=== PATIENT | male | born 1990 | race Hispanic/Latino ===

== ENCOUNTER 2020-01-03 22:30 | Emergency (ER) | payer SELFPAY ==
[2020-01-03 22:53] LABS: BILIRUBIN,URINE Negative (NEGATIVE); COLOR,URINE Yellow (YELLOW); GLUCOSE, URINE (UA) Negative (NEGATIVE); KETONES,URINE 15 mg/dL (NEGATIVE); LEUKOCYTE ESTERASE ,URINE Negative (NEGATIVE); NITRATE,URINE Negative (NEGATIVE); OCCULT BLOOD,URINE Negative (NEGATIVE); PH,URINE 8.5 (5.0-8.0); PROTEIN,URINE Negative (NEGATIVE)
[2020-01-03 22:55] LABS: APPEARANCE,URINE CLEAR (CLEAR)
[2020-01-03] MEDS ORDERED: LIDOCAINE HCL 2% VISCOUS 15 ML UDCUP ONE ×2 (22:55→23:32)
[2020-01-03] MEDS ORDERED: MAG HYDROX/AL HYDROX/SIMETH ES 30 ML SUSP UDCUP ONE ×2 (22:55→23:32)
[2020-01-03] MEDS ORDERED: FAMOTIDINE 20MG TAB 20 MG TAB ONE (22:56)
[2020-01-03 23:12] LABS: BASOPHILS % (AUTO) 0.6 % (0.0-5.0); EOSINOPHILS % (AUTO) 4.1 % (0.0-8.0); HEMATOCRIT 45.3 % (42-54); LYMPHOCYTES % (AUTO) 31.9 % (21.0-51.0); MEAN CORPUSCULAR HEMOGLOBIN 32.8 pg (27.0-33.0); MEAN CORPUSCULAR HGB CONC 34.2 g/dL (32.0-36.0); MEAN CORPUSCULAR VOLUME 95.8 fL (79-99); MONOCYTES % (AUTO) 8.8 % (3.0-13.0); NEUTROPHILS % (AUTO) 54.2 % (40.0-77.0); PLATELET COUNT (AUTO) 269 K/uL (130-400); RED BLOOD CELL COUNT(AUTO) 4.73 MIL/uL (4.50-6.20); RED CELL DISTRIBUTION WIDTH 13.8 % (11.0-15.5); WHITE BLOOD COUNT (AUTO) 10.9 K/uL (4.8-10.8)
[2020-01-03 23:22] LABS: CREATININE 1.3 mg/dL (0.5-1.5)
[2020-01-03 23:26] LABS: ALBUMIN 3.3 g/dL (3.5-5.0); BILIRUBIN,TOTAL 0.3 mg/dL (0.2-1.0); TOTAL PROTEIN, SERUM 6.5 g/dL (6.0-8.3)
[2020-01-03] MEDS ORDERED: PANTOPRAZOLE SODIUM 40 MG TABLET.DR ONE (23:49)
[2020-01-03] MEDS ORDERED: DICYCLOMINE HCL 20 MG TAB ONE (23:49)
[2020-01-04] MEDS ORDERED: METOCLOPRAMIDE 10 MG/2 ML VIAL ONE
== END 2020-01-04 01:03 | disposition home or self-care (01) ==
LOC: EDH 22:30
DX: R10.13 Epigastric pain (principal); Z72.0 Tobacco use
CPT/HCPCS: 36415; 80053; 81003; 83690; 85025; 86677; 96374; 99284; J2765

== ENCOUNTER 2020-09-11 00:22 | Inpatient (IN) | payer OTHER, SELFPAY ==
[~2020-09-11] VITALS: Ht 160 cm; Wt 73.0 kg
[2020-09-11 00:39] LABS: BILIRUBIN,URINE Negative (NEGATIVE); COLOR,URINE Yellow (YELLOW); GLUCOSE, URINE (UA) Negative (NEGATIVE); KETONES,URINE 40 mg/dL (NEGATIVE); LEUKOCYTE ESTERASE ,URINE Negative (NEGATIVE); NITRATE,URINE Negative (NEGATIVE); OCCULT BLOOD,URINE Negative (NEGATIVE); PH,URINE 8.5 (5.0-8.0); PROTEIN,URINE Negative (NEGATIVE)
[2020-09-11 00:45] LABS: APPEARANCE,URINE CLOUDY (CLEAR)
[2020-09-11 00:48] LABS: AMORPHOUS SEDIMENT,UR Many /LPF (None Seen); BACTERIA,URINE None Seen /HPF (None Seen); RBC,URINE None Seen /HPF (0-1); SQUAMOUS EPITHELIAL CELL,UR Rare /HPF (0-2); WBC,URINE None Seen /HPF (0-1)
[2020-09-11] MEDS ORDERED: ONDANSETRON HCL 4 MG/2 ML VIAL ONE ×2 (00:49→13:28)
[2020-09-11] MEDS ORDERED: MORPHINE SULFATE 4 MG/1ML SYG ONE (00:50)
[2020-09-11 00:55] LABS: BASOPHILS % (AUTO) 0.9 % (0.0-5.0); EOSINOPHILS % (AUTO) 1.1 % (0.0-8.0); HEMATOCRIT 51.3 % (42-54); LYMPHOCYTES % (AUTO) 12.2 % (21.0-51.0); MEAN CORPUSCULAR HGB CONC 34.9 g/dL (32.0-36.0); MEAN CORPUSCULAR VOLUME 94.5 fL (79-99); NEUTROPHILS % (AUTO) 79.5 % (40.0-77.0); PLATELET COUNT (AUTO) 293 K/uL (130-400); RED BLOOD CELL COUNT(AUTO) 5.43 MIL/uL (4.50-6.20); RED CELL DISTRIBUTION WIDTH 13.3 % (11.0-15.5); WHITE BLOOD COUNT (AUTO) 10.1 K/uL (4.8-10.8)
[2020-09-11 01:05] LABS: POTASSIUM 3.5 mmol/L (3.5-5.1)
[2020-09-11 01:07] LABS: AMPHET/METH SCREEN,URINE NEGATIVE (NEGATIVE); BARBITURATE SCREEN, URINE NEGATIVE (NEGATIVE); BENZODIAZEPINES SCREEN,URINE NEGATIVE (NEGATIVE); CANNABINOID SCREEN,URINE POSITIVE (NEGATIVE); COCAINE SCREEN,URINE POSITIVE (NEGATIVE); OPIATE SCREEN,URINE NEGATIVE (NEGATIVE); PHENCYCLIDINE SCREEN,URINE NEGATIVE (NEGATIVE)
[2020-09-11 01:07] LABS: INR 1.03 (0.85-1.15)
[2020-09-11 01:08] LABS: PARTIAL THROMBOPLASTIN TIME 26.6 SEC (26.3-35.5)
[2020-09-11 01:10] LABS: ALBUMIN 3.5 g/dL (3.5-5.0); BILIRUBIN,TOTAL 0.4 mg/dL (0.2-1.0); TOTAL PROTEIN, SERUM 7.8 g/dL (6.0-8.3)
[2020-09-11] MEDS ORDERED: IOHEXOL-350 75 ML VIAL IV ONE (01:15)
[2020-09-11] MEDS ORDERED: ZOSYN 3.375GM+NS 50ML 50 ML IV ONE ×3 (01:56→20:16)
[2020-09-11] MEDS ORDERED: MORPHINE SULFATE 2 MG/ML 1ML SYG IVP PRN (04:45)
[2020-09-11] MEDS ORDERED: ONDANSETRON HCL 4 MG/2 ML VIAL IVP PRN (04:45)
[2020-09-11] MEDS: ZOSYN 3.375GM+NS 50ML 50 ML IV SCH ×2 (09:30→17:30)
[2020-09-11] MEDS ORDERED: MORPHINE SULFATE 2 MG/ML 1ML SYG ONE (13:28)
[2020-09-11] MEDS ORDERED: MAGNESIUM CITRATE 296 ML SOLUTION ONE (17:23)
[2020-09-11] MEDS ORDERED: MAGNESIUM CITRATE 296 ML SOLUTION PO SCH (17:30)
[2020-09-11 21:45] VITALS: BP 106/72
[2020-09-12] VITALS (27 sets, daily range): BP systolic 100–137; BP diastolic 54–91
[2020-09-12] MEDS ORDERED: DIPHENHYDRAMINE HCL 25 MG CAPSULE PO SCH ×2 (00:15→22:00)
[2020-09-12] MEDS ORDERED: DIPHENHYDRAMINE HCL 25 MG CAPSULE ONE (00:28)
[2020-09-12] MEDS: ZOSYN 3.375GM+NS 50ML 50 ML IV SCH ×3 (02:12→17:54)
[2020-09-12 06:46] LABS: ALBUMIN 2.7 g/dL (3.5-5.0); BILIRUBIN,TOTAL 0.5 mg/dL (0.2-1.0); CREATININE 1.1 mg/dL (0.5-1.5); POTASSIUM 3.9 mmol/L (3.5-5.1); TOTAL PROTEIN, SERUM 6.3 g/dL (6.0-8.3)
[2020-09-12] MEDS ORDERED: MIDAZOLAM HCL 1 MG/ML 2ML VIAL ONE ×2 (08:12→11:58)
[2020-09-12] MEDS ORDERED: SUCCINYLCHOLINE CHLORIDE 20 MG/ML 10 ML VIAL ONE (08:12)
[2020-09-12] MEDS ORDERED: LIDOCAINE PF 2% 5ML ABBOJECT ONE (08:12)
[2020-09-12] MEDS ORDERED: DEXAMETHASONE SOD PHOSPHATE 10MG/ML 1ML VIAL ONE (08:12)
[2020-09-12] MEDS ORDERED: NEOSTIGMINE 5MG/5ML SYR IV ONE (08:13)
[2020-09-12] MEDS ORDERED: ONDANSETRON HCL 4 MG/2 ML VIAL ONE (08:13)
[2020-09-12] MEDS ORDERED: ROCURONIUM 10MG/1ML SYR 10 MG/ML ML ONE (08:13)
[2020-09-12] MEDS ORDERED: PROPOFOL 10 MG/ML 20ML VIAL IV ONE (08:13)
[2020-09-12] MEDS ORDERED: GLYCOPYRROLATE 1 MG/5 ML SYRINGE ONE (08:13)
[2020-09-12] MEDS ORDERED: FENTANYL CITRATE PF 50 MCG/1 ML 2ML VIAL ONE ×2 (08:14→12:31)
[2020-09-12] MEDS ORDERED: LACTATED RINGERS 1000ML 1,000 ML IV ONE (09:18)
[2020-09-12] MEDS ORDERED: BUPIVACAINE/PF 0.5% 30ML VIAL ONE (09:53)
[2020-09-12] MEDS ORDERED: LIDOCAINE HCL 1% 20 ML VIAL ONE (09:53)
[2020-09-12] MEDS ORDERED: MEPERIDINE-PF 25 MG/ML SYG ONE ×3 (11:52→13:41)
[2020-09-12] MEDS ORDERED: BUPIVACAINE/PF 0.25% 30ML VIAL IJ ONE (12:03)
[2020-09-12] MEDS ORDERED: KETOROLAC TROMETHAMINE 30MG/ML ONE (13:05)
[2020-09-12] MEDS: OXYCODONE/ACETAMIN 5/325MG TAB PO PRN ×2 (15:31→23:12)
[2020-09-13] MEDS: ZOSYN 3.375GM+NS 50ML 50 ML IV SCH ×2 (01:29→09:47)
[2020-09-13 04:13] VITALS: BP 102/68
[2020-09-13 08:00] VITALS: BP 116/79
[2020-09-13] MEDS: OXYCODONE/ACETAMIN 5/325MG TAB PO PRN (08:27)
== END 2020-09-13 15:00 | disposition home or self-care (01) | DRG 419 ==
LOC: EDH 00:22 → EDHIP 00:23 → 3CH 21:16
PROVIDERS: ADMIT Internal Medicine; ATTEND Internal Medicine
PROC: 0FT44ZZ Resection of Gallbladder, Percutaneous Endoscopic Approach (ICD-10-PCS; principal; 2020-09-12 12:18)
DX: K80.12 Calculus of gallbladder with acute and chronic cholecystitis without obstruction (principal); Z20.828 Contact with and (suspected) exposure to other viral communicable diseases; K21.9 Gastro-esophageal reflux disease without esophagitis; K82.8 Other specified diseases of gallbladder; Z83.3 Family history of diabetes mellitus
CPT/HCPCS: 36415; 74177; 76705; 80053; 80305; 81001; 82948; 83690; 85025; 85610; 85730; 87426; 93005; G0378; J0330; J1100; J1885; J2001; J2175; J2250; J2270; J2405; J2543; J2704; J2710; J3010; J3490; J7030; J7120; Q0163; Q9967; U0003